=== PATIENT | female | born 2000 ===

== ENCOUNTER 2022-12-13 15:15 | Outpatient (CLI) ==
[~2022-12-13] VITALS: Ht 157.5 cm; Wt 86.8 kg
[2022-12-13 15:37] VITALS: BP 103/57
[2022-12-13] MEDS ORDERED: PRENTAB9 PO (16:10)
[2022-12-13] MEDS ORDERED: HOME MED LIST COMPLETE! XX SCH (16:15)
[2022-12-13] MEDS ORDERED: LR 1,000 ML IV ONE (16:40)
[2022-12-13 17:40] VITALS: BP 104/61
[2022-12-13 18:30] LABS: HEMOGLOBIN 12.1 g/dl (12.0-15.5); MEAN CORPUSCULAR HEMOGLOBIN 31.7 pg (27.0-33.0); MEAN CORPUSCULAR HGB CONC 33.6 g/dl (32.0-36.5); MEAN CORPUSCULAR VOLUME 94.2 fl (80.0-96.0); PLATELET COUNT, AUTOMATED 264 10^3/uL (150-450); RED BLOOD COUNT 3.82 10^6/uL (4.00-5.40); WHITE BLOOD COUNT 9.1 10^3/uL (4.0-10.0)
== END 2022-12-13 19:30 | disposition home or self-care (01) ==
LOC: M LDO 15:15
PROVIDERS: ATTEND Registered Nurse
DX: O9A.213 Injury, poisoning and certain other consequences of external causes complicating pregnancy, third trimester (principal); S30.1XXA Contusion of abdominal wall, initial encounter; W00.0XXA Fall on same level due to ice and snow, initial encounter; Y92.9 Unspecified place or not applicable; S80.01XA Contusion of right knee, initial encounter; S80.02XA Contusion of left knee, initial encounter; Z3A.30 30 weeks gestation of pregnancy; Z91.040 Latex allergy status